=== PATIENT | female | born 1970 | race Caucasian/White ===

== ENCOUNTER 2021-12-26 16:11 | Outpatient (CLI) | payer BC | END 2021-12-26 16:12 | disposition home or self-care (01) | LOC: CSHLAB 16:11 | PROVIDERS: ATTEND Surgery | DX: Z20.822 Contact with and (suspected) exposure to COVID-19 (principal); R10.13 Epigastric pain; Z53.9 Procedure and treatment not carried out, unspecified reason ==

== ENCOUNTER 2021-12-31 07:56 | Day surgery (SDC) | payer BC ==
[2021-12-31] MEDS ORDERED: Lidocaine 1% MPF 2 ML VIAL ONE (09:25)
[2021-12-31] MEDS ORDERED: PROPOFOL 0 ML ONE (09:46)
[2021-12-31] MEDS ORDERED: Ondansetron PF 4 MG/2 ML Vial ONE ×3 (09:46→12:21)
[2021-12-31] MEDS ORDERED: Dexamethasone 4 mg/ml Vial ONE (09:46)
[2021-12-31] MEDS ORDERED: Lidocaine 1% PF 5 ML VIAL ONE (09:46)
[2021-12-31] MEDS ORDERED: Bupivacaine 0.25% HCL 30 ML VIAL ONE (10:40)
[2021-12-31] MEDS ORDERED: EPINEPHrine 1 MG/ML AMP ONE (10:40)
[2021-12-31] MEDS ORDERED: Fentanyl 100 MCG/2 ML VIAL ONE ×2 (10:40→11:31)
[2021-12-31] MEDS ORDERED: Promethazine HCl 25 MG/ML VIAL ONE (10:43)
[2021-12-31] MEDS ORDERED: CEFAZOLIN 2 GM VIAL ONE (10:52)
[2021-12-31] MEDS ORDERED: PROPOFOL 20 ML ONE (11:31)
[2021-12-31] MEDS ORDERED: Esmolol 100 MG/10 ML VIAL ONE (11:36)
[2021-12-31] MEDS ORDERED: Meperidine HCl/PF 25 MG/ML VIAL ONE (12:49)
== END 2021-12-31 13:50 | disposition home or self-care (01) ==
LOC: CSHSDC 07:56
PROVIDERS: ATTEND Surgery
PROC: 0FT44ZZ Resection of Gallbladder, Percutaneous Endoscopic Approach (ICD-10-PCS; principal; 2021-12-31)
DX: K80.10 Calculus of gallbladder with chronic cholecystitis without obstruction (principal); D64.9 Anemia, unspecified; M79.7 Fibromyalgia; G25.81 Restless legs syndrome; Z79.899 Other long term (current) drug therapy; Z98.84 Bariatric surgery status
CPT/HCPCS: 88304; C1713; J0171; J0690; J1100; J2175; J2405; J2550; J2704; J3010; S0020

== ENCOUNTER 2022-07-30 13:08 | Emergency (ER) | payer BC ==
[~2022-07-30 13:08] MED LIST: Iopamidol 300 61% 100 ML VIAL FS ONE
[2022-07-30] MEDS ORDERED: Morphine 4 MG/ML VIAL ONE (14:01)
[2022-07-30] MEDS ORDERED: Ondansetron PF 4 MG/2 ML Vial ONE (14:02)
[2022-07-30 14:05] LABS: #Monocytes 0.4 10x3/uL (0.0-1.1); #Neutrophils 4.5 10x3/uL (1.5-8.4); %Basophils 0.6 % (0.0-2.0); %Eosinophils 0.6 % (0.0-6.0); %Lymphocytes 21.2 % (18.0-47.0); %Monocytes 5.8 % (0.0-10.0); %Neutrophils 71.6 % (40.0-75.0); Hemoglobin 13.4 g/dL (12.0-15.5); Mean Corpuscular HGB CONC 33.9 g/dL (32.0-36.0); Mean Corpuscular Volume 85.5 fl (81.6-98.3); Mean Platelet Volume 10.6 fl (7.4-10.4); Platelet Count 273 10x3/uL (150-450); RBC Distribution Width 14.6 % (11.5-14.5); Red Blood Cell (RBC) Count 4.62 10x6/uL (3.90-5.03); White Blood Cell (WBC) Count 6.2 10x3/uL (3.5-10.5)
[2022-07-30 14:07] LABS: ALT (SGPT) 12 U/L (8-55); AST (SGOT) 17 U/L (5-34); Albumin 4.1 g/dL (3.5-5.0); Alkaline Phosphatase 112 U/L (40-110); Anion Gap 12 mmol/L (10-20); BUN (Urea Nitrogen) 12 mg/dL (7.0-18.7); Bilirubin, Total 0.5 mg/dL (0.2-1.2); Calc. Creatinine Clearance 0 mL/min (70-130); Carbon Dioxide 26 mmol/L (22-29); Chloride 105 mmol/L (98-107); Estimated GFR 88; Globulin 3.1 g/dL (2.4-3.5); Glucose 83 mg/dL (70-105); Lipase 25 U/L (8-78); Potassium 3.4 mmol/L (3.5-5.1); Protein, Total 7.2 g/dL (6.0-8.3); Sodium 140 mmol/L (136-145)
[2022-07-30] MEDS ORDERED: Dicyclomine 20 MG/2 ML VIAL ONE (15:16)
[2022-07-30] MEDS ORDERED: Mag-Al Plus 1200 MG/1200 MG/120 MG/30 ML UDCUP ONE (16:10)
[2022-07-30] MEDS ORDERED: Lidocaine Viscous Sol 2% 15 ml UD Cup ONE (16:10)
== END 2022-07-30 15:51 | disposition home or self-care (01) ==
LOC: CSHERS 13:08
DX: R10.13 Epigastric pain (principal); R10.12 Left upper quadrant pain
CPT/HCPCS: 36415; 74177; 80053; 83605; 83690; 84484; 85025; 93005; 96372; 96374; 96375; J2270; J2405; Q9967

== ENCOUNTER 2022-12-29 07:48 | Outpatient (CLI) | payer BC | END 2022-12-29 07:49 | disposition home or self-care (01) | LOC: CSHMAMMO 07:48 | PROVIDERS: ATTEND Nurse Practitioner Family | DX: Z12.31 Encounter for screening mammogram for malignant neoplasm of breast (principal) | CPT/HCPCS: 77063; 77067 ==